=== PATIENT | male | born 1985 | race Caucasian/White ===

== ENCOUNTER 2017-12-13 21:51 | Emergency (ER) | payer SELFPAY ==
[2017-12-13 21:53] VITALS: BP 121/84; PULSE 98; RESP 16; TEMP 36.8; O2SAT 98; BMI 31.3
[2017-12-13] MEDS: 0.9% Normal Saline 1,000 ML 1000 ML IV (22:18)
[2017-12-13 22:41] LABS: ALB/GLOB Ratio 0.9 RATIO (0.9-2.4); AST(SGOT) 54 U/L (15-37); Alanine Aminotransfer ALT/SGPT 47 U/L (16-61); Albumin, Serum 3.5 g/dL (3.2-5.0); Alkaline Phosphatase 58 U/L (45-117); Anion Gap 6 (5-15); BUN 12 mg/dL (7-18); BUN/Creat Ratio 12.7 RATIO (10-20); Calcium,Total 8.1 mg/dL (8.5-10.1); Chloride 107 mmol/L (98-107); Creatinine, Serum 0.94 mg/dL (0.70-1.30); EST Glomerular Filtration Rate 100 mL/min (>60); Est Glom Filt Rate - Afr Amer 121 mL/min (>60); Estimated Creatinine Clearance 122.38 ml/min; Globulin 3.8 g/dL (2.2-4.2); Glucose 97 mg/dL (74-106); Potassium 3.8 mmol/L (3.5-5.1); Protein, Total 7.3 g/dL (6.4-8.2); Sodium Level 140 mmol/L (136-145)
--- NOTE | 2017-12-13 23:29 | ED.DCSUM_ITS ---
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 He is complaining of bilateral lower extremity pain. There is some muscle cramps. No fever chills no abdominal pain. He has no weakness in his legs he has no back pain. He has no urinary retention or bowel compromise. He has no weakness in his upper extremities. Exam: Not appear in acute distress. Moist mucous membranes, no obvious facial deformity No C-spine tenderness supple neck. Regular rate and rhythm without any obvious murmurs Clear lungs bilaterally speaking in full sentences without any obvious respiratory distress Abdomen soft and nontender no guarding or rebound Moves all extremities, he does have some tenderness to palpation of quadriceps and hamstring regions. No edema. Skin does not show any obvious rashes or lesions, no trauma. Alert oriented ?3 with no gross focal deficit Emergency Department Course and Treatment: Patient received IV fluids, patient has normal creatinine and normal workup. He was discharged in stable condition. Impression: [Muscle cramps] This note was generated with [employer] dictation software. It may contain incorrect words, spelling, and punctuation that were not noted in review of the chart prior to signing ED Disposition - Plan for ED Patient: Chief Complaint: Lower Extremity Injury Instructions: ED Cramp Heat Prescriptions: Cyclobenzaprine [Flexeril] 10 mg PO TID PRN #20 tab PRN Reason: Muscle Spasm Referrals: Care Physician,No Primary [Primary Care Provider] - 3-5 Days
[2017-12-13 23:33] VITALS: BP 118/68; PULSE 91; RESP 18; O2SAT 96
== END 2017-12-13 23:34 | disposition home or self-care (01) ==
LOC: ED 22:28
PROVIDERS: Emergency Provider Emergency Medicine
DX: R25.2 Cramp and spasm (principal); Z72.0 Tobacco use
CPT/HCPCS: 80053; 96360; 99284; J7030